=== PATIENT | female | born 2005 | race Caucasian/White ===

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

== ENCOUNTER 2024-01-26 00:23 | Emergency (ER) | payer MEDICAID ==
--- NOTE | 2024-01-26 01:00 | ERPHSYRPT ---
- History of Present Illness Time Seen by Provider: 01/26/24 00:55 Physician History: 18yo f presents via private vehicle for elevated bp and dizziness on position change for the past 3 days. Pt reports the dizziness feels like the room is spinning around her, only occurs when she changes position, denies any falls 2/2 dizziness. Pt reports the dizziness improves if she stabilizes herself for a few seconds. Pt reports her bp has been running in the 140s to 150s systolic recently. Pt denies any cp, vision changes, BERGER, sob, n/v. Timing/Duration: day(s) (3) Severity: mild Modifying Factors: Improves With: immobilization Associated Symptoms: No nausea, No vomiting, No abdominal pain, No shortness of breath, No chills, No chest pain, No fever, No headaches, No syncope, No seizure, No weakness Allergies/Adverse Reactions: No Known Drug Allergies Allergy (Verified 01/26/24 01:09) Home Medications: No Reportable Medications [No Reported Medications] 01/26/24 [History] Hx Tetanus, Diphtheria Vaccination/Date Given: Yes Hx Influenza Vaccination/Date Given: No Hx Pneumococcal Vaccination/Date Given: No - Review of Systems Constitutional: No Symptoms Respiratory: No Symptoms Cardiac: No Symptoms Abdominal/Gastrointestinal: No Symptoms Neurological: Dizziness, No Focal Weakness, No Gait Changes, No Headache, No Lethargy, No Seizure, No Sensory Changes, No Speech Changes, No Tremors - Past Medical History Pertinent Past Medical History: Yes Neurological History: No Pertinent History ENT History: Other Cardiac History: No Pertinent History Respiratory History: No Pertinent History Endocrine Medical History: No Pertinent History Musculoskeletal History: Fractures GI Medical History: No Pertinent History History: No Pertinent History Psycho-Social History: No Pertinent History Female Reproductive Disorders: No Pertinent History Other Medical History: VIT D DEFECIENCY\. 2 stress fx, lt lower leg - Past Surgical History Past Surgical History: Yes Neuro Surgical History: No Pertinent History Cardiac: No Pertinent History Respiratory: No Pertinent History Gastrointestinal: No Pertinent History Genitourinary: No Pertinent History Musculoskeletal: No Pertinent History Female Surgical History: No Pertinent History Other Surgical History: MAGNETS REMOVED FROM NOSE - Social History Smoking Status: Never smoker Exposure to second hand smoke: Yes Drug Use: none Patient Lives Alone: No - Nursing Vital Signs Nursing Vital Signs: Initial Vital Signs Pulse Rate 84 01/26/24 00:50 Respiratory Rate 16 01/26/24 00:50 Blood Pressure 166/108 01/26/24 00:50 O2 Sat by Pulse Oximetry 100 01/26/24 00:50 Pain Scale Pain Intensity 3 - Physical Exam General Appearance: no apparent distress, alert Eye Exam: PERRL/EOMI, eyes nml inspection Ears, Nose, Throat Exam: normal ENT inspection Respiratory Exam: normal breath sounds, lungs clear, airway intact, No chest tenderness, No respiratory distress Cardiovascular Exam: regular rate/rhythm, normal heart sounds, normal peripheral pulses Neurologic Exam: alert, oriented x 3, cooperative, 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, normal mood/affect, nml cerebellar function, nml station & gait SpO2 Interpretation: normal SpO2: 100 O2 Delivery: Room Air - Course EKG Interpreted by Me: RATE (85), Sinus Rhythm, Other (no acute ST changes, not suggestive of ischemia) Ordered Tests: Active Orders 24 hr Category Date Time Status EKG-ER Only STAT Care 01/26/24 00:59 Active - Progress Progress: improved Progress Note: 01/26/24 01:53 orthostatic BPs as follows: laying - 168/98 seated - 130/101 standing - 138/89 pt mildly hypertensive throughout ED stay ekg showed normal sinus rhythm positive orthostatic vitals suggestive of orthostatic hypotension w/ position change plan for discharge home, PCP follow up scheduled for this week w/ Dr Baig, be sure to discuss hypertension instructed to maintain oral hydration w/ plenty of clear liquids and electrolyte containing fluids recommend taking time to stabilize self when changing position to ensure you are not dizzy before starting to walk return to ED if: develop vision changes, dizziness causes falls, develop headaches that do not resolve with tylenol/ibuprofen Counseled pt/family regarding: diagnosis, need for follow-up Medical Desision Making - Risk of complications Minimal Risk: Minimal risk of morbidity - Departure Departure Disposition: Home Clinical Impression: Orthostatic hypotension Condition: Stable Critical Care Time: No Referrals: CHARO SUAZO [ACTIVE STAFF] - Follow up/PCP as directed Additional Instructions: plan for discharge home, PCP follow up scheduled for this week w/ Dr Baig, be sure to discuss hypertension instructed to maintain oral hydration w/ plenty of clear liquids and electrolyte containing fluids recommend taking time to stabilize self when changing position to ensure you are not dizzy before starting to walk return to ED if: develop vision changes, dizziness causes falls, develop headaches that do not resolve with tylenol/ibuprofen
[2024-01-26 03:17] VITALS: BP 123/76; PULSE 85; RESP 17; O2SAT 99
== END 2024-01-26 03:22 | disposition home or self-care (01) ==
LOC: ED 00:23
DX: I95.1 Orthostatic hypotension (principal); R42 Dizziness and giddiness
CPT/HCPCS: 93005; 99283